=== PATIENT | male | born 1965 | race Caucasian/White ===

== ENCOUNTER 2022-04-24 08:54 | Outpatient (CLI) | payer OTHER, SELFPAY ==
[2022-04-24 14:27] LABS: Chloride* 105 mmol/L (96-114); Sodium* 141 mmol/L (135-149)
[2022-04-24 14:28] LABS: Potassium* 5.2 mmol/L (3.6-5.1)
[2022-04-24 14:30] LABS: Cholesterol* 178 mg/dL (90-199); Creatinine* 0.7 mg/dL (0.5-1.5); Estimated Glomerular Filt Rate 107 ml/min
[2022-04-24 14:31] LABS: Blood Urea Nitrogen* 12 mg/dL (7-30); Calcium* 9.8 mg/dL (8.4-10.6); Carbon Dioxide* 31 mmol/L (20-32); Glucose* 89 mg/dL (60-115); HDL Cholesterol* 81 mg/dL (>=40); LDL Cholesterol Calculated 88 mg/dL (<100); Triglycerides* 44 mg/dL (40-149)
[2022-04-24 14:56] LABS: PSA Screen* 1.06 ng/mL (0.10-4.00)
== END 2022-04-24 08:55 | disposition home or self-care (01) ==
PROVIDERS: PCP Emergency Medicine; Visit Provider Emergency Medicine
DX: Z00.00 Encounter for general adult medical examination without abnormal findings (principal); I10 Essential (primary) hypertension; Z12.5 Encounter for screening for malignant neoplasm of prostate; Z13.6 Encounter for screening for cardiovascular disorders
CPT/HCPCS: 80048; 80061; 84153

== ENCOUNTER 2025-01-11 11:13 | Outpatient (CLI) | payer BC, SELFPAY | END 2025-01-11 11:14 | disposition home or self-care (01) | LOC: NFLDREF 01-16 01:07 | PROVIDERS: PCP Emergency Medicine; Referring Provider Emergency Medicine; Visit Provider Family Medicine | DX: Z00.00 Encounter for general adult medical examination without abnormal findings (principal); I10 Essential (primary) hypertension; Z12.5 Encounter for screening for malignant neoplasm of prostate | CPT/HCPCS: 80053; 80061; G0103 ==